=== PATIENT | male | born 1975 | race Caucasian/White ===

== ENCOUNTER 2017-03-30 08:49 | Day surgery (SDC) | payer BC ==
[2017-03-23 10:00] VITALS: BMI 28.7
--- NOTE | 2017-03-30 06:44 | HP ---
History & Physical Update - History History: No Change - Physical Physical: No Change - Assessment Assessment: No Change - Plan Plan: No Change (Low back pain with extension into her RLE. Here today for elective L4-S1 laminectomy)
[~2017-03-30 08:49] MED LIST: oxyCODONE HCL 10 MG SUSTAINED ACTING TABLET PO STA
[2017-03-30] MEDS ORDERED: oxyCODONE HCL 10 MG SUSTAINED ACTING TABLET ONE (09:40)
[2017-03-30] MEDS ORDERED: MIDAZOLAM HCL 2 MG/2 ML SINGLE DOSE VIAL ONE ×4 (11:04→12:45)
[2017-03-30] MEDS ORDERED: DEXAMETHASONE SOD PHOSPHATE/PF 10 MG/ML SDV ONE (11:04)
[2017-03-30] MEDS ORDERED: BUPIVACAINE HCL/PF 2.5 MG/ML - 30 ML VIAL IJ ONE (11:05)
[2017-03-30] MEDS ORDERED: BUPIVACAINE HCL/PF (5 MG/ML) 30 ML VIAL IJ ONE (11:05)
[2017-03-30] MEDS ORDERED: LIDOCAINE 1%/EPI 1:100000 (20 ML MULTI DOSE VIAL) ONE (11:10)
[2017-03-30] MEDS ORDERED: THROMBIN (BOVINE) 5,000 UNIT VIAL TP ONE (11:10)
[2017-03-30] MEDS ORDERED: GUM MASTIC/STORAX/MSAL/ALCOHOL 1 DRP DROPSBTL MC ONE (11:10)
[2017-03-30] MEDS ORDERED: methylPREDNISolone ACET (DEPO) 40 MG/1 ML VIAL ONE (11:10)
[2017-03-30] MEDS ORDERED: ceFAZolin SODIUM 1 GM VIAL ONE (11:49)
[2017-03-30] MEDS ORDERED: LIDOCAINE 1%/EPI 1:100000 (50 ML MULTI DOSE VIAL) INF ONE (12:20)
[2017-03-30] MEDS ORDERED: methylPREDNISolone ACET (DEPO) 40 MG/1 ML VIAL NR ONE (13:26)
--- NOTE | 2017-03-30 13:54 | OP ---
Operative Note - Note: Operative Date: 03/30/17 Pre-Operative Diagnosis: spinal stenosis Operation: L4-L5, L5-S1 laminectomy Surgeon: Joaquín Engle Manufacturing Process Engineer: Mariam Ma Anesthesiologist/BEAUTY ADVISOR: Char Kent Anesthesia: Spinal Estimated Blood Loss (mls): 30 Fluid Volume Replaced (mls): 1,000 Operative Report Dictated: Yes
--- NOTE | 2017-03-30 13:55 | SURG ---
Surgery Lead Investigator Note Lead Investigator: Mariam Ma PA-C Date of Service: 03/30/17 Diagnosis: spinal stenosis Procedure: laminectomy of L4-L5/L5-S1 I was present for the entirety of the operative procedure. For further detail, please refer to operative report. Visit type - Case Type Case Type: Scheduled Admission - Emergency Emergency Visit: No - New patient This patient is new to me today: Yes Date on this admission: 03/30/17
[2017-03-30] MEDS ORDERED: oxyCODONE HCL 5 MG TABLET PO PRN (13:56)
[2017-03-30] MEDS ORDERED: ONDANSETRON 4 MG/2 ML VIAL IVPUSH PRN (13:56)
[2017-03-30] MEDS ORDERED: LACTATED RINGERS SOLUTION 1,000 ML IV SCH (14:00)
[2017-03-30 14:52] VITALS: TEMP 98.3
--- NOTE | 2017-03-30 15:06 | OP ---
DATE OF OPERATION: 03/30/2017 PREOPERATIVE DIAGNOSIS: Spinal stenosis, L4-L5, L5-S1. POSTOPERATIVE DIAGNOSIS: Spinal stenosis, L4-L5, L5-S1. PROCEDURE PERFORMED: Laminectomy at L4-L5, L5-S1. SURGEON: Joaquín Engle MD FRIT BURNER: MAYE Rojo ESTIMATED BLOOD LOSS: 50 mL. INTRAVENOUS FLUIDS: Per Anesthesia. ANESTHESIA: Spinal/TLIP. COMPLICATIONS: There were none. DISPOSITION: Patient brought to the PACU in stable condition. INDICATIONS FOR SURGERY: The patient is a 41-year-old gentleman who has been suffering from pain and weakness in his right leg. X-rays and MRI were completed, which noted that he has spinal stenosis at L4-L5 and L5-S1. He had gone through an exhaustive course of treatment which included medications, physical therapy, as well as injections. Unfortunately, his pain continued to persist despite all this. At this point, risks, benefits, and alternatives were discussed, and the patient consented to surgery. OPERATIVE NOTE: Patient was brought to the operating room by the Anesthesia staff. After appropriate patient identification was performed, spinal anesthesia was given and a TLIP block was given. All areas of bony prominences well padded. At this time, 2 needles were placed into his back to sarah off the L4 and S1 segments. An x-ray was taken to confirm this was correct. The needle was removed, and 10 mL of lidocaine with epinephrine was injected into his back at this time. His back was prepped and draped in a sterile manner. At this point, a time-out was completed. An incision was made from the top of L4 down to the bottom of S1. Dissection was carried down to the fascia. Fascia was then split open at this time. Appropriate retractors were then placed in. A spinal needle was placed onto the L5 lamina to sarah off the L5-S1 segment. An x-ray was taken to confirm this was correct. At this point, the microscope was brought in. The interspinous ligament at L4- L5 and L5-S1 were removed. The spinous process at L5 was removed. A bur was used to remove the lamina. A complete decompression was performed such that by the end of the procedure, the L5 and S1 nerve roots appeared to be well decompressed. All bleedings were well controlled at this time. Steroids were placed over the nerve root. Floseal was placed over that. The fascia was closed with a No. 1 Vicryl suture. The subcutaneous tissues were closed with 2-0 Vicryl suture. Skin was closed with 3-0 Monocryl suture. Dermabond was applied. Steri-Strips were applied, and sterile dressings applied. Patient was placed supine on the OR bed and brought to the PACU in stable condition. Laura FRANCES/[id number] MTDD
[2017-03-30 15:42] VITALS: BP 137/75; PULSE 94
== END 2017-03-30 15:40 | disposition home or self-care (01) ==
LOC: FASU 08:49
PROVIDERS: ATTEND Orthopaedic Surgery Orthopaedic Surgery of the Spine
PROC: 01NB0ZZ Release Lumbar Nerve, Open Approach (ICD-10-PCS; principal; 2017-03-30 12:28)
DX: M48.061 Spinal stenosis, lumbar region without neurogenic claudication (principal); M48.07 Spinal stenosis, lumbosacral region
CPT/HCPCS: 72100-TC; 94760